=== PATIENT | male | born 1990 | race Caucasian/White ===

== ENCOUNTER 2018-06-24 10:32 | Emergency (ER) | payer SELFPAY ==
[~2018-06-24] VITALS: Ht 175.3 cm; Wt 72.9 kg
[2018-06-24 10:33] VITALS: BP 155/81; PULSE 89; RESP 18; Ht 175.3 cm; Wt 72.9 kg
[2018-06-24] MEDS ORDERED: KETOROLAC 60 MG INJ IM STA (10:52)
[2018-06-24] MEDS ORDERED: NAPR-985 PO (11:08)
[2018-06-24] MEDS ORDERED: HYDR-4011 PO (11:08)
[2018-06-24] MEDS ORDERED: CYCL10TA7 PO (11:08)
--- NOTE | 2018-06-24 14:27 | ERD ---
ER Documentation Chief Complaint Chief Complaint BACK PAIN STARTED YESTERDAY HPI 28-year-old male presenting with back pain that started yesterday. He states is noted on the left side is worse with movement. He denies any falls or traumatic injuries. Denies any change in urination or bowel movement. Denies abdominal pain or fevers. Took Tylenol earlier today with no alleviation of symptoms. Denies medical problems. NKDA. Surgical history denies. Social history denies ROS All systems reviewed and are negative except as per history of present illness. Medications Home Meds Active Scripts Cyclobenzaprine Hcl* (Cyclobenzaprine Hcl*) 10 Mg Tablet, 10 MG PO TID, #15 TAB Prov:AYALA PADILLA PA-C 06/24/18 Naproxen* (Naprosyn*) 500 Mg Tablet, 500 MG PO BID PRN for PAIN AND/OR INFLAMMATION, #30 TAB Prov:AYALA PADILLA PA-C 06/24/18 Hydrocodone/Acetaminophen ([place] 5-325 Tablet) 1 Each Tablet, 1 TAB PO Q6H PRN for PAIN, #7 TAB Prov:AYALA PADILLA PA-C 06/24/18 Allergies Allergies: Coded Allergies: No Known Allergy (Unverified , 06/24/18) PMhx/Soc Medical and Surgical Hx: pt denies Medical Hx, pt denies Surgical Hx Hx Alcohol Use: No Hx Substance Use: No Hx Tobacco Use: No FmHx Family History: No diabetes, No coronary disease, No other Physical Exam Vitals Vital Signs Date Temp Pulse Resp B/P (MAP) Pulse Ox O2 O2 Flow FiO2 Time Delivery Rate 06/24/18 97.9 89 18 155/81 98 10:33 (105) Physical Exam GENERAL: The patient is well-appearing, well-nourished, in no acute distress HEENT: Atraumatic. Conjunctivae are pink. Pupils equal, round, and reactive to light. There is no scleral icterus. Tympanic membranes clear bilaterally. Oropharynx clear. CHEST: Clear to auscultation bilaterally. There are no rales, wheezes or rhon chi. HEART: Regular rate and rhythm. No murmurs, clicks, rubs or gallops. No S3 or S4. ABDOMEN:Soft, nontender and nondistended. Good bowel sounds. No rebound or guarding. No gross peritonitis. No gross organomegaly or masses. BACK: No midline or flank tenderness. Tender to palpation over left paraspinous muscles of the mid thoracic spine. Results 24 hrs Laboratory Tests Test 06/24/18 11:02 Bedside Urine pH (LAB) 7.0 Bedside Urine Protein (LAB) Negative Bedside Urine Glucose (UA) Negative Bedside Urine Ketones (LAB) Negative Bedside Urine Blood Negative Bedside Urine Nitrite (LAB) Negative Bedside Urine Leukocyte Esterase (L Negative Current Medications Medications Dose Sig/Tisha Start Time Status Last (Trade) Ordered Route PRN Stop Time Admin Dose Reason Admin Ketorolac 60 mg ONCE STAT 06/24/18 DC 06/24/18 Tromethamine IM 10:52 11:04 (Toradol) 06/24/18 10:53 Procedures/MDM Course: Toradol and urine collected. Urine negative for blood. MDM: 28-year-old male presenting with muscular skeletal strain. I considered nephrolithiasis however given patient has no blood in urine I have low suspicion for stone. I have low suspicion for acute abdominal emergency as patient's abdominal exam is non-concerning. Patient is nontoxic-appearing. Patient is told if symptoms change or worsen to return immediately to the ER. Patient is discharged with strict ER precautions. All questions answered at discharge Departure Diagnosis: Primary Impression: Back pain Condition: Stable Patient Instructions: Back Pain (Acute Or Chronic) Referrals: [facility] YOU HAVE RECEIVED A MEDICAL SCREENING EXAM AND THE RESULTS INDICATE THAT YOU DO NOT HAVE A CONDITION THAT REQUIRES URGENT TREATMENT IN THE EMERGENCY DEPARTMENT. FURTHER EVALUATION AND TREATMENT OF YOUR CONDITION CAN WAIT UNTIL YOU ARE SEEN IN YOUR DOCTORS OFFICE WITHIN THE NEXT 1-2 DAYS. IT IS YOUR RESPONSIBILITY TO MAKE AN APPOINTMENT FOR FOLOW-UP CARE. IF YOU HAVE A PRIMARY DOCTOR --you should call your primary doctor and schedule an appointment IF YOU DO NOT HAVE A PRIMARY DOCTOR YOU CAN CALL OUR PHYSICIAN REFERRAL HOTLINE AT IF YOU CAN NOT AFFORD TO SEE A PHYSICIAN YOU CAN CHOSE FROM THE FOLLOWING [facility] [address] [facility] [address] [facility] [facility] [address] [facility] [address] [facility]. [facility] [address] [facility]. [facility] [address] Additional Instructions: FOLLOW UP WITH YOUR PRIMARY CARE PHYSICIAN TOMORROW.Return to this facility if you are not improving as expected. AYALA PADILLA PA-C Jun 24, 2018 14:27
== END 2018-06-24 11:29 | disposition home or self-care (01) ==
LOC: FTE 10:32
DX: S29.012A Strain of muscle and tendon of back wall of thorax, initial encounter (principal); X58.XXXA Exposure to other specified factors, initial encounter; Y92.9 Unspecified place or not applicable
CPT/HCPCS: 81003; 96372; 99284; J1885